=== PATIENT | female | born 1990 | race Caucasian/White ===

== ENCOUNTER 2018-10-10 09:13 | Observation (INO) | payer OTHER ==
[2018-10-10 10:03] VITALS: BMI 31.6
[2018-10-10] MEDS ORDERED: Lactated Ringer's 1,000 ML IV ONE (10:03)
[2018-10-10] MEDS ORDERED: Betamethasone Soluspan 30 mg/5mL Inj Susp IM ONE (10:04)
[2018-10-10] MEDS ORDERED: Lactated Ringer's 1,000 ML IV SCH (10:15)
--- NOTE | 2018-10-10 10:32 | OBHP ---
Datetime: 10/10/2018 10:24 IP Adm Impression: , intrauterine IP Chief Complaint Other: prolonged monitor/griffin 6 IP Admit Plan: Admit to unit; Observation/Evaluation Admit Comment, IP Provider: at 36weeks send from dr huffman due to griffin 6.no mctxs, vb , lof +fm obhx 1 x pmh de med pnv all nkda psh de soch de sse neg nit, neg pooli a/p at 36weeks bordeline kevin plan admit to l7d npo/ivf pronlrd momn beta repeat griffin in am dr leonora hedrick aware Pelvic Type - PN: Adequate Extremities - PN: Normal Abdomen - PN: Normal Back - PN: Normal Breast - PN: Normal Lungs - PN: Normal Heart - PN: Normal Thyroid - PN: Normal Neurologic - PN: Normal HEENT - PN: Normal General - PN: Normal FHR - Baseline A Provider: 130 Membranes, Provider: Intact Contraction Comments Provider: occ Pool Provider: Negative Nitrazine Provider: Negative IP Hx Assessment: The History has been Reviewed and is Current Vital Signs Provider: Reviewed; Within Normal Limits IP Chief Complaint: Other NICHD Variability Prov Fetus A: Moderate 6-25bpm NICHD Accel Fetus A IP Provider: 15X15 FHR Category Provider Fetus A: Category I Dilatation, Provider: 0 Effacement, Provider: 0 Station, Provider: -3 Genitourinary Exam: Normal DTRs - PN: Normal
[2018-10-10 11:25] LABS: BASO # 0.1 K/uL (0.0-0.2); BASO % 0.9 % (0.0-2.0); EOS # 0.1 K/uL (0.0-0.7); EOS % 1.2 % (0.0-4.0); HEMOGLOBIN 10.8 g/dL (11.0-16.0); LYMPH % 19.7 % (20.0-40.0); MEAN CELL VOLUME 81.3 fL (81.0-99.0); MEAN CORPUSCULAR HEMOGLOBIN 26.8 pg (27.0-31.0); MEAN CORPUSCULAR HGB CONC 32.9 g/dL (33.0-37.0); MEAN PLATELET VOLUME 9.2 fL (7.2-11.7); MONO # 0.7 K/uL (0.0-0.8); MONO % 6.8 % (0.0-10.0); NEUT # 7.4 K/uL (1.8-7.0); NEUT % 71.4 % (50.0-75.0); NRBC % 0.1 % (0.0-2.0); RBC 4.04 Mil/uL (3.80-5.20); WHITE BLOOD COUNT 10.3 K/uL (4.8-10.8)
[2018-10-10 11:43] LABS: SQUAMOUS EPITHIAL 47 /hpf (0-5); URINE BACTERIA OCC (<OCC); URINE BILIRUBIN NEGATIVE (NEGATIVE); URINE BLOOD 1+ (NEGATIVE); URINE CLARITY Hazy (Clear); URINE COLOR Yellow (YELLOW); URINE GLUCOSE (UA) NORMAL (Normal); URINE LEUKOCYTE ESTERASE TRACE Leu/uL (Negative); URINE PROTEIN NEGATIVE (NEGATIVE); URINE UROBILINOGEN NORMAL mg/dL (0.2-1.0)
[2018-10-10 12:47] LABS: BLOOD UREA NITROGEN 11 mg/dL (7-17); CALCIUM 9.3 mg/dl (8.6-10.4); GFR NON-AFRICAN AMERICAN > 60
[2018-10-10 12:48] LABS: ALB/GLOB RATIO 1.2 (1.0-2.1); ALBUMIN 3.7 g/dL (3.5-5.0); ALT/SGPT 11 U/L (9-52); AST/SGOT 19 U/L (14-36)
[2018-10-11] MEDS ORDERED: Betamethasone Soluspan 30 mg/5mL Inj Susp IM ONE (09:45)
--- NOTE | 2018-10-11 11:16 | OBPN ---
Datetime: 10/11/2018 11:07 IP Procedures Other: NST IP Progress Impression Other: Oligohydramnios IP Progress Impression: Reactive non-stress test IP Progress Plan: Continue present management FHR - Baseline A Provider: 120 Gestation - Est Wks by US: 36.1 Presentation-Admit: Vertex IP Progress Note Comment: Pt seen and examined per Dr. Albert's request No complaints. + FM. Denies LOF, VB or VD In Observation status since yesterday after sent from Dr. Bradley's office with Dx of Oligohydramni os and for continuous monitoring, IV Hydration and Celestone x 2 doses 2nd Celestone dose due at 11:15 and will give NST Reactive Has appointment with Dr. Bradley at 1:00 pm today and will discharge after lunch to go for this ximena ointment Stable and Satisfactory condition NICHD Accel Fetus A IP Provider: 15X15 NICHD Variability Prov Fetus A: Moderate 6-25bpm NICHD Decel Fetus A IP Provider: None Datetime: 10/10/2018 10:24 Pool Provider: Negative Nitrazine Provider: Negative Membranes, Provider: Intact Contraction Comments Provider: occ Vital Signs Provider: Reviewed; Within Normal Limits FHR Category Provider Fetus A: Category I Dilatation, Provider: 0 Effacement, Provider: 0 Station, Provider: -3
--- NOTE | 2018-10-11 12:59 | OBDCSUM ---
Datetime: 10/11/2018 11:43 Discharged to, Provider: Home Follow up at, Provider: Dr. Albert Disch Instr Activity: May be up to bathroom; May be up for meals; May Shower Disch Instr Diet: Regular Discharge Diet restrict Prov: none Discharge Instructions, Provider: Routine instructions given Discharge Time: 10/11/2018 12:30 Follow up in weeks, Provider: AM Disch Referrals: None Contraception discussed, Prov: No Disch Activity Restrictions: No exercising; No lifting; Minimize stair-climbing; No sexual activity; Nothing in vagina - [place], tampons, douche Discharge Comment, Provider: G1 female with an IUP at 36.1 weeks Admitted for observaton after noted to have Oligohydramnios and for Close monitoring and Celestone x 2. Intermittent Monitoring with reassuring FHT's and no sign of labor. GBS test obtained prior to discharge home SVE 07/25/-2 Stable and Satisfactory condition Discharge home with instructions and as per Dr. Albert. -upon discharge, please be sure to stop by [facility]FM to have your scheduled ultrasound done at 1300 toda y. Also be sure to keep your next scheduled appointment with Dr. Albert. - Keep your body well hydrated by drinking at least 8-10 glasses of water per day. You should retu rn to the ER if your memberanes rupture and you feel an involuntary gush of fluid, heavy bleeding, or notice a decrease in movement. Refer to the education material provided for further instructio ns.
[2018-10-11 17:07] VITALS: BP 105/55; PULSE 83; O2SAT 98
== END 2018-10-11 12:50 | disposition home or self-care (01) ==
LOC: C.EROB 09:13 → C.4D 10:16 → UNDOADMIN 10:16 → C.4D 10:16
PROVIDERS: ADMIT Obstetrics & Gynecology; ATTEND Obstetrics & Gynecology
DX: O41.03X0 Oligohydramnios, third trimester, not applicable or unspecified (principal); Z3A.36 36 weeks gestation of pregnancy
CPT/HCPCS: 80053; 81001; 85025; 86592; 86703; 86850; 86900; 87081; G0378; J0702; J7120

== ENCOUNTER 2018-10-21 17:53 | Inpatient (IN) | payer OTHER ==
[2018-10-21] MEDS ORDERED: Lactated Ringer's 1,000 ML IV ONE (18:27)
[2018-10-21] MEDS ORDERED: Penicillin G 5 Million Unit Vial IVPB ONE (18:27)
[2018-10-21 18:53] LABS: BASO # 0.1 K/uL (0.0-0.2); BASO % 0.7 % (0.0-2.0); EOS # 0.1 K/uL (0.0-0.7); EOS % 0.8 % (0.0-4.0); HEMOGLOBIN 11.1 g/dL (11.0-16.0); LYMPH # 3.2 K/uL (1.0-4.3); LYMPH % 21.3 % (20.0-40.0); MEAN CELL VOLUME 80.3 fL (81.0-99.0); MEAN CORPUSCULAR HEMOGLOBIN 25.3 pg (27.0-31.0); MEAN CORPUSCULAR HGB CONC 31.5 g/dL (33.0-37.0); MEAN PLATELET VOLUME 8.4 fL (7.2-11.7); MONO # 1.2 K/uL (0.0-0.8); MONO % 7.8 % (0.0-10.0); NEUT # 10.6 K/uL (1.8-7.0); NEUT % 69.4 % (50.0-75.0); NRBC % 0.1 % (0.0-2.0); RBC 4.38 Mil/uL (3.80-5.20); RED CELL DISTRIBUTION WIDTH 14.2 % (11.5-14.5); WHITE BLOOD COUNT 15.2 K/uL (4.8-10.8)
--- NOTE | 2018-10-21 18:59 | OBHP ---
Datetime: 10/11/2018 11:07 IP Adm Impression: Term, intrauterine ; Active labor IP Admit Plan: Admit to unit Admit Comment, IP Provider: 28 @ 37 weeks presents today for labor. Contractions began at 10 :00am POBHx: 2017 #6lb PGYNHx : none PMHx: none PSHx: none Social Hx: negative x 3 a/p 28 @ 37 1) LABOR 8100/0 2) ADMIT 3) NPO 4) IVF 5) GBS UNKNOWN START PCN. Pelvic Type - PN: Adequate Extremities - PN: Normal Abdomen - PN: Normal Back - PN: Normal Breast - PN: Normal Lungs - PN: Normal Heart - PN: Normal Thyroid - PN: Normal Neurologic - PN: Normal HEENT - PN: Normal General - PN: Normal Presentation-Admit: Vertex FHR - Baseline A Provider: 120 Gestation - Est Wks by US: 37.4 Pool Provider: Negative IP Hx Assessment: The History has been Reviewed and is Current EGA AdmitDate IP: 36.1 IP Chief Complaint: Uterine contractions NICHD Variability Prov Fetus A: Moderate 6-25bpm NICHD Accel Fetus A IP Provider: 15X15 NICHD Decel Fetus A IP Provider: None Dilatation, Provider: 8 Effacement, Provider: 100 Station, Provider: 0 Genitourinary Exam: Normal DTRs - PN: Normal
[2018-10-21 19:01] LABS: SQUAMOUS EPITHIAL 41 /hpf (0-5); URINE AMORPHOUS SEDIMENT OCC /ul (<OCC); URINE BACTERIA FEW (<OCC); URINE BILIRUBIN NEGATIVE (NEGATIVE); URINE BLOOD 3+ (NEGATIVE); URINE CLARITY Hazy (Clear); URINE COLOR Yellow (YELLOW); URINE GLUCOSE (UA) NORMAL (Normal); URINE LEUKOCYTE ESTERASE 2+ Leu/uL (Negative); URINE PROTEIN 1+ mg/dL (NEGATIVE); URINE UROBILINOGEN NORMAL mg/dL (0.2-1.0)
[2018-10-21] MEDS ORDERED: Lidocaine Hydrochloride 10 ML INJ ONE (20:04)
[2018-10-21] MEDS ORDERED: Oxytocin 30 UNIT in NS 500 ml 30 UNITS/500 ML BAG IV ONE (20:33)
[2018-10-21] MEDS ORDERED: Oxycodone/Acetaminophen 5/325 mg Tab PO PRN (20:33)
--- NOTE | 2018-10-21 20:43 | OBDS ---
DELIVERY PERSONNEL Delivery Doctor: Louise Terry MD Scrub Nurse: Demetria [employer] Salesperson: Nila Kim RN MATERNAL INFORMATION Delivery Anesthesia: Local Medications in Delivery: Lidocaine Estimated Blood Loss (ml): 200 Placenta Cultured: No Maternal Complications: Precipitous Labor (<3hrs) Provider Comments: PT DELIVERED VIABLE FEMALE OVER INTACT PERINEUM. THE HEAD DELIVERED, NO NUC GONZALEZ CORD NOTED, THE ANTERIOR AND POSTERIOR SHOULDER DELIVERED W/O DIFFICUTLY. THE FETUS WAS DELIVERED , THE CORD WAS CUT CLAMPED AND INFANT HANDED TO PEDS. PLACENTA WAS DELIVERED INTACT WITH [address] SPONGE COUNT WAS CORRECT. LABOR SUMMARY EDC: 11/07/2018 00:00 No. Babies in Womb: 1 Attempted: No Labor Anesthesia: None LABOR INFORMATION Reason for Induction: Not Applicable Onset of Labor: 10/21/2018 16:30 Complete Dilatation: 10/21/2018 19:28 Group B Beta Strep: Done, Result Unknown Antibiotics # of Doses: 1 Antibiotics Time of Last Dose: 18:50 Steroids Given: None Reason Steroids Not Administered: Not Applicable MEMBRANES Membranes Rupture Method: Artificial Rupture of Membranes: 10/21/2018 19:36 Length of Rupture (hrs): 0.35 Amniotic Fluid Color: Clear Amniotic Fluid Amount: Moderate Amniotic Fluid Odor: Normal STAGES OF LABOR Stage 1 hrs: 2 Stage 1 min: 58 Stage 2 hrs: 0 Stage 2 min: 29 Stage 3 hrs: 0 Stage 3 min: 17 Total Time in Labor hrs: 3 Total Time in Labor min: 44 VAGINAL DELIVERY Episiotomy: None Laceration Type: Perineal Laceration Repair: Yes Laceration Repair Note: 2nd Degree Laceration noted. Initial Vag Sponge Count: 10 Final Vag Sponge Count: 10 Final Vag Sharps Count: 2 Sponge Count Correct: Yes Sharps Count Correct: Yes Count Comment: complete BABY A INFORMATION Infant Delivery Date/Time: 10/21/2018 19:57 Method of Delivery: Vaginal Born in Route : No : N/A Forceps: N/A Vacuum Extraction: N/A Shoulder Dystocia : No SHOULDER DYSTOCIA BABY A Delivery Date/Time: 10/21/2018 19:57 PRESENTATION/POSITION BABY A Presentation: Cephalic Cephalic Presentation: Vertex Vertex Position: Right Occipital Anterior Breech Presentation: N/A PLACENTA INFORMATION BABY A Placenta Delivery Time : 10/21/2018 20:14 Placenta Method of Delivery: Spontaneous Placenta Status: Delivered SCORES BABY A Heart Rate 1 min: >100 bpm Resp Effort 1 min: Good Cry Reflex Irritability 1 min: Cough or Sneeze or Pulls Away Muscle Tone 1 min: Active Motion Color 1 min: Body [place], Extremities Blue SCORE 1 MIN: 9 Heart Rate 5 min: >100 bpm Resp Effort 5 min: Good Cry Reflex Irritability 5 min: Cough or Sneeze or Pulls Away Muscle Tone 5 min: Active Motion Color 5 min: Body [place], Extremities Blue SCORE 5 MIN: 9 INFORMATION BABY A Gestational Age at Delivery: 37.4 Gestational Status: Term Outcome : Liveborn Condition : Stable Sex: Female IDENTIFICATION/MEDS BABY A ID Band Number: [id number] ID Band Location: Left Leg; Left Arm Sensor Applied: Yes Sensor Number: [id number] Sensor Location : Cord Clamp Vitamin K Given : Aqu[place]phy[place] 1 mg IM Erythromycin Given: Given Both Eyes WEIGHT/LENGTH BABY A Birthweight (gms): 3015 Weight (lb): 6 Infant Weight (oz): 10 Length Inches: 20.00 Length cms: 50.8 CORD INFORMATION BABY A No. Cord Vessels: 3 Nuchal Cord : N/A Cord Blood Taken: N/A Suction: None
[2018-10-21 21:29] LABS: RAPID PLASMA REAGIN NONREACTIVE (NONREACTIVE)
[2018-10-22] MEDS: Benzocaine/Menthol 20%-0.5% Topical Spray (60 ml) TOP PRN (00:33)
[2018-10-22 07:29] LABS: BASO % 0.2 % (0.0-2.0); EOS # 0.1 K/uL (0.0-0.7); EOS % 0.4 % (0.0-4.0); HEMOGLOBIN 10.3 g/dL (11.0-16.0); LYMPH # 2.6 K/uL (1.0-4.3); LYMPH % 14.4 % (20.0-40.0); MEAN CELL VOLUME 81.1 fL (81.0-99.0); MEAN CORPUSCULAR HEMOGLOBIN 26.1 pg (27.0-31.0); MEAN CORPUSCULAR HGB CONC 32.2 g/dL (33.0-37.0); MEAN PLATELET VOLUME 8.9 fL (7.2-11.7); MONO # 1.2 K/uL (0.0-0.8); MONO % 6.9 % (0.0-10.0); NEUT % 78.1 % (50.0-75.0); RBC 3.94 Mil/uL (3.80-5.20); RED CELL DISTRIBUTION WIDTH 14.4 % (11.5-14.5); WHITE BLOOD COUNT 17.9 K/uL (4.8-10.8)
[2018-10-22] MEDS: Multiple Vitamins Tab PO SCH (09:55)
--- NOTE | 2018-10-23 02:02 | OBDCSUM ---
Datetime: 10/23/2018 02:00 Discharged to, Provider: Home Follow up at, Provider: dr hedrick Disch Instr Activity: Normal activity Disch Instr Diet: Regular Discharge Instructions, Provider: Routine instructions given Discharge Diagnosis, Provider: Term Delivered Discharge Time: 10/23/2018 13:00 Follow up in weeks, Provider: 6 weeks Disch Referrals: None Contraception discussed, Prov: Yes Disch Activity Restrictions: No sexual activity; Nothing in vagina - [place], tampons, douche Discharge Comment, Provider: ruby this am Contraception after Delivery: Not Planning to Use
--- NOTE | 2018-10-23 02:02 | OBPPN ---
Datetime: 10/23/2018 01:59 PP Pain Prov: Within normal limits PP Nausea Prov: Denies PP Flatus Prov: Yes PP Breasts Prov: Normal PP Heart Prov: Normal PP Lungs Prov: Normal PP Abdomen/Uterus Prov: Normal PP Lochia Prov: Normal PP Vulva/Perineum Prov: Normal PP CVA Tenderness Prov: Normal PP Extremities Prov: Normal PP C/S Incision Prov: Not Applicable PP Progress Prov: Normal PP Comments Phys Exam Prov: fundus: firm, below leve of umicu minimal lochai, non coulse mselling no uteirn tejdnress PP Impression Prov: Normal progression PP Progress Note Prov: pt seen adn edmiend no comp;aints VSS PE see above a/p s/p NVD PPD #2 with leukocytyots f/u rpeat cbc anticp dxc home rto 6 weke precoaign tiven Vital Signs Provider PP: Reviewed; Within Normal Limits
[2018-10-23 07:47] LABS: BASO # 0.1 K/uL (0.0-0.2); BASO % 0.6 % (0.0-2.0); EOS # 0.2 K/uL (0.0-0.7); EOS % 1.6 % (0.0-4.0); HEMOGLOBIN 10.1 g/dL (11.0-16.0); LYMPH # 3.3 K/uL (1.0-4.3); LYMPH % 25.5 % (20.0-40.0); MEAN CELL VOLUME 80.8 fL (81.0-99.0); MEAN CORPUSCULAR HEMOGLOBIN 26.5 pg (27.0-31.0); MEAN CORPUSCULAR HGB CONC 32.8 g/dL (33.0-37.0); MEAN PLATELET VOLUME 8.6 fL (7.2-11.7); MONO # 0.9 K/uL (0.0-0.8); MONO % 7.4 % (0.0-10.0); NEUT # 8.3 K/uL (1.8-7.0); NEUT % 64.9 % (50.0-75.0); NRBC % 0.1 % (0.0-2.0); RBC 3.83 Mil/uL (3.80-5.20); RED CELL DISTRIBUTION WIDTH 14.6 % (11.5-14.5); WHITE BLOOD COUNT 12.8 K/uL (4.8-10.8)
[2018-10-23] MEDS ORDERED: Measles, Mumps, and Rubella 0.5 ML VIAL SC ONE (10:00)
[2018-10-23] MEDS: Multiple Vitamins Tab PO SCH (10:50)
[2018-10-23] MEDS: Benzocaine/Menthol 20%-0.5% Topical Spray (60 ml) TOP PRN (10:51)
[2018-10-23] MEDS ORDERED: Tdap Vaccine 0.5 ml Vial (10-64 yrs) IM ONE (17:00)
[2018-10-23 17:48] VITALS: PULSE 78; RESP 18; TEMP 97.8; O2SAT 98
[2018-10-23 17:59] VITALS: BP 108/64
== END 2018-10-23 19:00 | disposition home or self-care (01) | DRG 373 ==
LOC: C.EROB 17:53 → C.4D 18:28 → C.4M 23:15
PROVIDERS: ADMIT Obstetrics & Gynecology; ATTEND Obstetrics & Gynecology
PROC: 10E0XZZ Delivery of Products of Conception, External Approach (ICD-10-PCS; principal; 2018-10-21)
PROC: 0KQM0ZZ Repair Perineum Muscle, Open Approach (ICD-10-PCS; 2018-10-21)
PROC: 10907ZC Drainage of Amniotic Fluid, Therapeutic from Products of Conception, Via Natural or Artificial Opening (ICD-10-PCS; 2018-10-21)
DX: O62.3 Precipitate labor (principal); O70.1 Second degree perineal laceration during delivery; Z3A.37 37 weeks gestation of pregnancy; Z37.0 Single live birth